=== PATIENT | female | born 1945 | race Caucasian/White ===

== ENCOUNTER 2018-07-18 09:25 | Emergency (ER) | payer OTHER ==
[~2018-07-18] VITALS: Ht 170.2 cm; Wt 83.9 kg
[2018-07-18 09:34] VITALS: BP 140/79
[2018-07-18] MEDS ORDERED: ALBUTEROL FS 2.5 MG/3 ML VIAL.NEB ONE (10:06)
[2018-07-18] MEDS ORDERED: IBUPROFEN 400 MG TABLET ONE (10:10)
[2018-07-18] MEDS ORDERED: IBUPROFEN 600 MG TABLET PO ONE (10:30)
[2018-07-18] MEDS ORDERED: ALBUTEROL FS 2.5 MG/3 ML VIAL.NEB CONTNEB ONE (10:30)
--- NOTE | 2018-07-18 11:06 | NUR ---
For discharge. ACI given Verbalized instructions. Home ambulatory in stable condition
== END 2018-07-18 11:08 | disposition home or self-care (01) ==
LOC: ER 09:34
DX: J06.9 Acute upper respiratory infection, unspecified (principal); I45.81 Long QT syndrome; E78.00 Pure hypercholesterolemia, unspecified; K21.9 Gastro-esophageal reflux disease without esophagitis; R00.1 Bradycardia, unspecified; Z60.2 Problems related to living alone
CPT/HCPCS: 36415; 71045; 84484; 93005; 94640 ×2; 99284; A4606

== ENCOUNTER 2018-08-30 18:36 | Inpatient (IN) | payer OTHER ==
[~2018-08-30] VITALS: Ht 167.6 cm; Wt 83.9 kg
--- NOTE | 2018-08-30 18:42 | NUR ---
BIB [facility] 89 FROM HOME,RIGHT FLANK PAIN SINCE LAST NIGHT NOW LOCALIZING TO HER HYPOGASTRIC AREA. STATES SHE'S HAVING A LOT OF DISCOMFORT AND THE PAIN IS 10/10. SKIN INTACT, DENIES SOB, DIZZINESS, WEAKNESS. HAVING NAUSEA/VOMITING X4 MANAGER ETHICS. READY FOR EVAL.
[2018-08-30] MEDS ORDERED: ONDANSETRON HCL/PF 4 MG/2 ML VIAL ONE (18:59)
[2018-08-30] MEDS ORDERED: PANTOPRAZOLE 40 MG VIAL ONE (18:59)
[2018-08-30] MEDS ORDERED: MAG HYDROX/AL HYDROX/SIMETH 30 ML UDC ONE (18:59)
[2018-08-30] MEDS ORDERED: PANTOPRAZOLE 40 MG VIAL IV ONE (19:00)
[2018-08-30] MEDS ORDERED: ONDANSETRON HCL/PF 4 MG/2 ML VIAL IVP ONE (19:00)
[2018-08-30] MEDS ORDERED: IV NS 0.9% 1,000 ML BAG IV ONE (19:00)
[2018-08-30] MEDS ORDERED: MAG HYDROX/AL HYDROX/SIMETH 30 ML UDC PO ONE (19:00)
[2018-08-30 19:07] LABS: BASOPHILS % (AUTO) 0.2 % (0.0-2.0); HEMATOCRIT 45 % (33-45); HEMOGLOBIN 15.1 g/dL (11.5-14.8); LYMPHOCYTES # (AUTO) 1.1 /CMM (0.8-4.8); LYMPHOCYTES % (AUTO) 14.4 % (20.0-44.0); MEAN CORPUSCULAR HGB CONC 33 g/dl (31.0-36.0); MEAN CORPUSCULAR VOLUME 92 fL (82-100); MONOCYTES # (AUTO) 0.4 /CMM (0.1-1.30); MONOCYTES % (AUTO) 4.7 % (2.0-12.0); NEUTROPHILS # (AUTO) 6.4 /CMM (1.8-8.9); NEUTROPHILS % (AUTO) 80.7 % (43.0-81.0); PLATELET COUNT (AUTO) 220 /CMM (150-450); RED BLOOD CELL COUNT(AUTO) 4.93 MIL/uL (4.0-5.2); WHITE BLOOD COUNT (AUTO) 7.9 K/uL (4.3-11.0)
[2018-08-30 19:15] LABS: CALCIUM, SERUM 9.6 mg/dL (8.5-10.1)
[2018-08-30 19:20] LABS: ALBUMIN 4.4 g/dL (3.4-5.0); BILIRUBIN,DIRECT 0.2 mg/dL (0.0-0.2); BILIRUBIN,TOTAL 0.6 mg/dL (0.2-1.0); TOTAL PROTEIN, SERUM 7.7 g/dL (6.4-8.2)
[2018-08-30] MEDS ORDERED: CT SWABBABLE VALVE TRANS SET 1 EA INFUS.SET MC ONE (19:21)
[2018-08-30] MEDS ORDERED: IV NS 0.9% 250 ML IV ONE (19:21)
[2018-08-30] MEDS ORDERED: IOHEXOL-300 100 ML VIAL IV ONE (19:21)
--- NOTE | 2018-08-30 20:04 | NUR ---
PT STILL FEELING DISCOMFORT. NOT ABLE TO FIND A COMFORTABLE POSITION. ATTEMPTED COMFORT MEASURES. WILL CONT TO MONITOR.
[2018-08-30] MEDS ORDERED: METOCLOPRAMIDE HCL 10 MG/2 ML VIAL ONE (20:59)
[2018-08-30] MEDS ORDERED: MORPHINE SULFATE INJ 4 MG/ML DISP.SYRIN ONE (21:00)
[2018-08-30] MEDS ORDERED: METOCLOPRAMIDE HCL 10 MG/2 ML VIAL IV ONE (21:00)
[2018-08-30] MEDS ORDERED: MORPHINE SULFATE INJ 2 MG/ML DISP.SYRIN IV ONE (21:00)
--- NOTE | 2018-08-30 21:01 | NUR ---
PT STATES PAIN, N/V HAS NOT IMPROVED WITH MEDICATION. MD NOTIFIED.
--- NOTE | 2018-08-30 22:28 | NUR ---
CALLED DR MCADAMS, ON THE PHONE WITH DR MITTAL.
--- NOTE | 2018-08-30 22:40 | NUR ---
PT STATES FEELING MUCH BETTER. N/V HAS SUBSIDED. PAIN NOT STRONG
[2018-08-30] MEDS ORDERED: GABA-532 PO (22:42)
[2018-08-30] MEDS ORDERED: CELE100C PO (22:42)
[2018-08-30] MEDS ORDERED: FERR134T2 PO (22:42)
[2018-08-30] MEDS ORDERED: TOPI50TA24 PO (22:42)
[2018-08-30] MEDS ORDERED: ATOR10TA PO (22:42)
[2018-08-30] MEDS ORDERED: OMEP40CA37 PO (22:42)
--- NOTE | 2018-08-30 22:45 | NUR ---
CALLED NURSING SANDFILL OPERATOR YVONNE, REQUESTING A MS BED.
--- NOTE | 2018-08-30 23:21 | NUR ---
REPORT GIVEN TO VALERI FOR 326-1 MS, FOR FRANTZ
[2018-08-31 00:14] VITALS: BP 155/73
--- NOTE | 2018-08-31 00:30 | NUR ---
FUNERAL HOME MAKEUP ARTIST NOTES PATIENT ARRIVED ON UNIT AT 0015. CHIEF COMPLAINT WAS ABDOMINAL PAIN AND NAUSEA. PATIENT IS A/O X4. NO SIGNS OF RESPIRATORY DISTRESS. PATIENT DENIES SHORTNESS OF BREATH. PATIENT STATES PAIN IS 6 OUT OF 10 AROUND ABDOMINAL AREA. SAFETY PRECAUTIONS IMPLEMENTED. CALL LIGHT WITHIN REACH. WILL CONTINUE TO MONITOR PATIENT THROUGHOUT THE REST OF THE SHIFT.
--- NOTE | 2018-08-31 00:31 | NUR ---
RN NOTES PATIENT REFUSES FULL BODY ASSESSMENT FOR WOUND AND SORE CHECKS. PATIENT STATES SHE DOES NOT HAVE ANY WOUNDS OR SORES. I WAS ONLY ABLE TO ASSESS UPPER AND LOWER EXTREMITIES AND FOUND NO SKIN IMPAIRMENT AT THIS TIME.
[2018-08-31 00:46] VITALS: BP 155/73
[2018-08-31] MEDS ORDERED: HYDROMORPHONE INJ 0.5 MG/0.5 ML SYRINGE IV PRN (01:30)
[2018-08-31] MEDS ORDERED: IV D5/ 0.9% NACL 1,000 ML IV SCH (01:30)
[2018-08-31] MEDS: ONDANSETRON HCL/PF 4 MG/2 ML VIAL IV PRN ×5 (03:03→21:48)
[2018-08-31] MEDS: HYDROMORPHONE INJ 2 MG/ML DISP.SYRIN IV PRN ×5 (03:32→23:38)
--- NOTE | 2018-08-31 06:30 | NUR ---
RN CLOSING NOTES PATIENT IS RESTING IN BED COMFORTABLY. NO SIGNS OF RESPIRATORY DISTRESS. NO SIGNS OF SHORTNESS OF BREATH. PATIENT HAS NO FACIAL GRIMACING INDICATING PAIN AT THIS TIME. IV SITE PATENT AND INTACT. SAFETY PRECAUTIONS IMPLEMENTED. CALL LIGHT WITHIN REACH. WILL ENDORSE TO ONCOMING AM RN.
[2018-08-31 06:31] LABS: APPEARANCE,URINE CLEAR (CLEAR); BILIRUBIN,URINE 1+ (NEGATIVE); BLOOD, URINE NEGATIVE Ery/uL (NEGATIVE); COLOR,URINE YELLOW (YELLOW); KETONES,URINE 2+ (NEGATIVE); LEUKOCYTE ESTERASE ,URINE NEGATIVE (NEGATIVE); NITRITE, URINE NEGATIVE (NEGATIVE); PH,URINE 5.5 (5.0-8.0); PROTEIN,URINE 1+ mg/dl (NEGATIVE); UGLUCOSE NEGATIVE (NEGATIVE); UROBILINOGEN,URINE 0.2 EU/dL (0.2)
[2018-08-31 06:43] LABS: BACTERIA,URINE None seen /HPF (None Seen); RBC,URINE NONE SEEN /HPF (0-2); SQUAMOUS EPITHELIAL CELL,UR Few /HPF (None Seen); WBC,URINE NONE SEEN /HPF (0-3)
--- NOTE | 2018-08-31 07:15 | NUR ---
MS RN OPENING NOTE RECEIVED PT IN BED, ALERT AND ORIENTED X4. DENIES CHEST PAIN, SOB, PT STATES SHE HAS SOME NAUSEA AND REPORTS ABD PAIN 8/10. WILL ADMINISTER ORDERED PRN MEDICATIONS PENDING VS CHECK. BREATHING IS EVEN AND UNLABORED ON ROOM AIR. LEFT AC #20 IS INFUSING D5NS @ 100ML HR WITHOUT REDNESS OR SWELLING. ALL NEEDS ATTENDED TO. BED IS LOCKED AND IN LOWEST POSITION, SIDE RAILS UP X2, BED ALARM ON, CALL LIGHT AND POSSESSIONS WITHIN REACH.
[2018-08-31 07:56] LABS: BASOPHILS % (AUTO) 0.1 % (0.0-2.0); HEMATOCRIT 43 % (33-45); HEMOGLOBIN 14.4 g/dL (11.5-14.8); LYMPHOCYTES # (AUTO) 0.7 /CMM (0.8-4.8); LYMPHOCYTES % (AUTO) 8.5 % (20.0-44.0); MEAN CORPUSCULAR HGB CONC 34 g/dl (31.0-36.0); MEAN CORPUSCULAR VOLUME 92 fL (82-100); MONOCYTES # (AUTO) 0.4 /CMM (0.1-1.30); MONOCYTES % (AUTO) 4.5 % (2.0-12.0); NEUTROPHILS # (AUTO) 6.8 /CMM (1.8-8.9); NEUTROPHILS % (AUTO) 86.9 % (43.0-81.0); PLATELET COUNT (AUTO) 199 /CMM (150-450); RED BLOOD CELL COUNT(AUTO) 4.65 MIL/uL (4.0-5.2); WHITE BLOOD COUNT (AUTO) 7.8 K/uL (4.3-11.0)
[2018-08-31 08:00] VITALS: BP 147/97
[2018-08-31 08:03] LABS: CALCIUM, SERUM 8.9 mg/dL (8.5-10.1); CREATININE 0.8 mg/dL (0.6-1.3)
[2018-08-31] MEDS: PANTOPRAZOLE 40 MG VIAL IV SCH (08:15)
[2018-08-31] MEDS ORDERED: DIATR MEGLU/DIATRIZOATE SODIUM 120 ML BOTTLE (GASTROGRAPHIN) ONE (09:05)
[2018-08-31] MEDS ORDERED: PROCHLORPERAZINE EDISYLATE 10 MG/2 ML VIAL IM PRN (09:30)
[2018-08-31] MEDS: PROCHLORPERAZINE EDISYLATE 10 MG/2 ML VIAL IVP PRN ×2 (09:34→17:14)
--- NOTE | 2018-08-31 09:43 | NUR ---
MS RN NOTE INFORMED THAT AT THIS TIME, PT IS REFUSING TO CONTINUE WITH SMALL BOWL FOLLOW THROUGH BUT AGREEABLE TO TRYING AGAIN AT A LATER TIME. AWAITING RESPONSE.
--- NOTE | 2018-08-31 09:48 | NUR ---
BROUGHT DOWN PATIENT FOR SBFT. TOOK WIRELESS COMMUNICATIONS ENGINEER FILMS. NO CONTRAST WAS GIVEN. PATIENT STATED THAT SHE DID NOT THINK SHE COULD PROCEED WITH EXAMS SHE WAS STILL FEELING NAUSEATED AND THEN VOMITED. CALLED RN, WHO THEN WAS GOING TO COME DOWN WITH MEDS TO HELP ALLEVIATE THE NAUSEA. THE PATIENT STATED THAT SHE STILL DID NOT WANT TO PROCEED WITH THE EXAM AND WANTED TO LIE DOWN IN HER ROOM. PT BACK UPSTAIRS. RN WILL CALL IF PATIENT WANTS TO CONTINUE WITH THE EXAM.
--- NOTE | 2018-08-31 11:20 | NUR ---
MS RN NOTE LISA HALL IN RADIOLOGY THAT PT AGREEABLE TO TRYING SMALL BOWL FOLLOW THROUGH AGAIN AFTER PRN ZOFRAN ADMINISTRATION DUE AT 1135.
--- NOTE | 2018-08-31 12:00 | NUR ---
MS RN NOTE PT OFF UNIT FOR SMALL BOWL FOLLOW THROUGH
--- NOTE | 2018-08-31 14:00 | NUR ---
MS RN NOTE PT BACK ON UNIT FROM SMALL BOWEL FOLLOW THROUGH.
[2018-08-31 16:00] VITALS: BP 139/78
[2018-08-31] MEDS: IV D5/ 0.9% NACL 1,000 ML IV PRN (16:14)
--- NOTE | 2018-08-31 16:35 | NUR ---
MS RN NOTE INFORMED THAT PT WILL CONTINUE TO HAVE IMAGING DONE THROUGH TOMORROW MORNING.
--- NOTE | 2018-08-31 18:15 | NUR ---
MS RN CLOSING NOTE PT IN BED, RESTING WITH EYES CLOSED AND EASILY AROUSABLE. PT IS ALERT AND ORIENTED X4. DENIES CHEST PAIN, SOB, AND REPORTS SOME NAUSEA. PT HAD 5 EPISODES OF NON BLOODY EMESIS TODAY. PT RATES PAIN IN THE ABD 5/10 AND TOLERABLE AT THIS TIME. BREATHING IS EVEN AND UNLABORED ON ROOM AIR. LEFT AC #20 IS INFUSING D5NS @ 100ML HR WITHOUT REDNESS OR SWELLING. ASSISTED WITH ADLS. ALL NEEDS ATTENDED TO, NPO STATUS MAINTAINED. BED IS LOCKED AND IN LOWEST POSITION, SIDE RAILS UP X2, BED ALARM ON, CALL LIGHT AND POSSESSIONS WITHIN REACH. WILL ENDORSE TO ORACLE ERP ARCHITECT NURSE FOR CONTINUITY OF CARE.
--- NOTE | 2018-08-31 19:20 | NUR ---
MS DENY NOTE RECEIVED PT IN STABLE CONDITION A&O X4, ABLE TO MAKE NEEDS KNOWN, CURRENTLY IN BED RESTING. NO SIGNS OF SOB OR DISTRESS, PAIN MEDICATION TO BE GIVEN ORDERED BY . PT C/O NAUSEA, DECLINES MEDICATION AT THIS TIME. ALL CURRENT NEEDS MET. SAFETY PRECAUTIONS IN PLACE: BED LOW, LOCKED, UPPER RAILS UP, AND CALL LIGHT WITHIN REACH. WILL CONT TO MONITOR. Addendum: 09/01/18 at 06 by KARLY PETERS RN LAP APPENDECTOMY NOT LAP LEWIS. Addendum: 09/01/18 at 0628 by KARLY PETERS RN SX WAS FOR ANOTHER PT. PLEASE DISREGARD ABOVE ADDENDUM.
--- NOTE | 2018-08-31 19:31 | NUR ---
MS RN NOTE PRN DILAUDID 1 MG IV GIVEN FOR ABD PAIN 12/23, WILL CONT TO MONITOR.
--- NOTE | 2018-08-31 20:01 | NUR ---
MS RN NOTE REASSESSED PT PAIN, PT STATES THAT PAIN IS GETTING BETTER AND IS NOW TOLERABLE. WILL CONT TO MONITOR.
[2018-08-31 20:27] VITALS: BP 166/88
[2018-08-31 20:29] VITALS: BP 166/88
--- NOTE | 2018-08-31 21:48 | NUR ---
MS RN NOTE PT C/O NAUSEA, PRN ZOFRAN GIVEN, WILL CONT TO MONITOR.
--- NOTE | 2018-08-31 22:18 | NUR ---
MS RN NOTE REASSESSED PT NAUSEA, PT STATES IT IS A LITTLE BETTER.
--- NOTE | 2018-08-31 23:38 | NUR ---
MS RN NOTE PRN DILAUDID 1 MG IV GIVEN FOR ABD PAIN 12/23, WILL CONT TO MONITOR.
--- NOTE | 2018-09-01 00:08 | NUR ---
MS RN NOTE REASSESSED PAIN, PT STATES IT IS TOLERABLE. WILL CONT TO MONITOR.
[2018-09-01] MEDS: IV D5/ 0.9% NACL 1,000 ML IV PRN (02:05)
[2018-09-01] MEDS: PROCHLORPERAZINE EDISYLATE 10 MG/2 ML VIAL IVP PRN ×2 (02:12→09:11)
--- NOTE | 2018-09-01 02:12 | NUR ---
MS RN NOTE PT C/O NAUSEA, PRN COMPAZINE GIVEN, WILL CONT TO MONITOR.
[2018-09-01] MEDS: HYDROMORPHONE INJ 2 MG/ML DISP.SYRIN IV PRN ×5 (02:42→16:53)
--- NOTE | 2018-09-01 02:42 | NUR ---
MS RN NOTE PRN DILAUDID 1 MG IV GIVEN FOR ABD PAIN 12/23, WILL CONT TO MONITOR.
--- NOTE | 2018-09-01 02:42 | NUR ---
MS RN NOTE REASSESSED PT NAUSEA, PT STATES THAT THIS MEDICATION WORKS BEST AND FEELS A LITTLE BETTER. WILL CONT TO MONITOR.
--- NOTE | 2018-09-01 03:12 | NUR ---
MS RN NOTE REASSESSED PAIN, PT STATES IT IS TOLERABLE. WILL CONT TO MONITOR.
[2018-09-01] MEDS: ONDANSETRON HCL/PF 4 MG/2 ML VIAL IV PRN (05:34)
--- NOTE | 2018-09-01 05:34 | NUR ---
MS RN NOTE PT C/O NAUSEA, PRN ZOFRAN GIVEN, WILL CONT TO MONITOR.
--- NOTE | 2018-09-01 05:49 | NUR ---
MS RN NOTE PRN DILAUDID 1 MG IV GIVEN FOR ABD PAIN 12/23, WILL CONT TO MONITOR.
--- NOTE | 2018-09-01 06:22 | NUR ---
MS RN NOTE PT IN STABLE CONDITION A&O X4, ABLE TO MAKE NEEDS KNOWN, CURRENTLY IN BED RESTING. NO SIGNS OF SOB OR DISTRESS, PAIN MEDICATION GIVEN ORDERED BY MD. ALL CURRENT NEEDS MET. SAFETY PRECAUTIONS IN PLACE: BED LOW, LOCKED, UPPER RAILS UP, AND CALL LIGHT WITHIN REACH. WILL CONT TO MONITOR AND ENDORSE TO NEXT SHIFT FOR FRANTZ.
--- NOTE | 2018-09-01 07:25 | NUR ---
MS/RN OPENING NOTE THE PATIENT ALERT AND ORIENTED X4. IN ROOM AIR AND DENIES SOB. RESPIRATION REGULAR AND UNLABORED. PATIENT COMPLAINS OF ABDOMINAL PAIN 10/23. THE PATIENT NOT DUE FOR PAIN MEDICATION AT THIS TIME AND AGREES TO WAIT FOR PAIN MEDICATION DUE TIME. HYPOACTIVE BOWEL SOUNDS IN ALL FOUR QUADS. LAC G 20 PATENT AND D5NS INFUSING AT 100ML/HR AND NO S/S INFILTRATION NOTED. BED LOW AND LOCKED. SIDE RAILS UP X3. CALL LIGHT WITHIN REACH. WILL CONTINUE TO MONITOR.
[2018-09-01 08:00] VITALS: BP 148/99
[2018-09-01] MEDS: PANTOPRAZOLE 40 MG VIAL IV SCH (08:16)
[2018-09-01] MEDS ORDERED: Potassium Chloride 10 MEQ in IV D5/0.45 NACL 1,000 ML IV PRN (10:00)
[2018-09-01 10:34] LABS: CALCIUM, SERUM 8.8 mg/dL (8.5-10.1); CREATININE 0.9 mg/dL (0.6-1.3); POTASSIUM 3.9 mmol/L (3.5-5.1)
[2018-09-01 10:35] LABS: MAGNESIUM 2.4 mg/dL (1.8-2.4)
--- NOTE | 2018-09-01 12:15 | NUR ---
MS/RN NOTE STAT XR RESULT CONFIRMED CORRECT PLACEMENT OF NG TUBE AT 1213. LOW INTERMITTENT NG SUCTION STARTED ON PER ORDER. THE PATIENT TOLERATING IT WELL. WILL CONTINUE TO MONITOR. Addendum: 09/01/18 at 1218 by FAIZA QUINTEROS RN CORRECTION: LOW SUCTION
[2018-09-01 16:00] VITALS: BP 137/76
--- NOTE | 2018-09-01 18:51 | NUR ---
MS/RN NOTE REPORT GIVEN TO MANDO FROM [facility]. THE DAUGHTER IS MADE AWARE.
--- NOTE | 2018-09-01 19:51 | NUR ---
MS ASSIGNMENT MANAGER NOTES Patient A/O x4, ambulatory without assistance. With patent LAC G#20 SL. With GT on L nares, with scanty brownish secretions noted. No N/V, discomfort noted at this time. No complaint of pain, Dilaudid 1 mg last dose administered by AM RN @[id number]. Picked up by 2 sludge control attendant via [employer]. Belongings and discharge papers endorsed to the sludge control attendant, patient aware. VS T 98.2F orally, UT 65bpm regular, RR 18 cpm even and unlabored, BP 150/76mmHg. Receiving [facility] notified of patient leaving [facility].
== END 2018-09-01 19:46 | disposition short-term general hospital (02) | DRG 389 ==
LOC: ER 18:38 → MED 23:41
PROVIDERS: ADMIT Internal Medicine; ATTEND Internal Medicine
DX: K56.609 Unspecified intestinal obstruction, unspecified as to partial versus complete obstruction (principal); K31.6 Fistula of stomach and duodenum; K21.9 Gastro-esophageal reflux disease without esophagitis; E78.5 Hyperlipidemia, unspecified; M19.90 Unspecified osteoarthritis, unspecified site; G25.81 Restless legs syndrome; Z98.84 Bariatric surgery status; Z90.49 Acquired absence of other specified parts of digestive tract
CPT/HCPCS: 36415; 71045-TC; 74250-TC; 80048-TC; 80076-TC; 81000-TC; 83690-TC; 83735-TC; 85025-TC; 87081-TC; C9113; G0378; J0780; J1170; J2270; J2405; J2765; J3480; J3490; J7030; J7042; J7050; Q9963; Q9967